=== PATIENT | female | born 1945 | race Caucasian/White ===

== ENCOUNTER 2018-02-03 15:01 | Outpatient (CLI) | payer MEDICARE | END 2018-02-03 15:02 | disposition home or self-care (01) | LOC: BICMAMMO 15:01 | PROVIDERS: ATTEND Obstetrics & Gynecology | DX: Z12.31 Encounter for screening mammogram for malignant neoplasm of breast (principal); Z98.82 Breast implant status | CPT/HCPCS: 77063; 77067 ==

== ENCOUNTER 2018-03-06 21:21 | Emergency (ER) | payer MEDICARE ==
--- NOTE | 2018-03-06 22:30 | RAD ---
RIGHT KNEE: 03/06/18 Four views. HISTORY: Trauma with pain. No evidence of fracture. No evidence of significant joint effusion. IMPRESSION: No acute osseous abnormality identified. POS: [facility]
--- NOTE | 2018-03-06 22:32 | RAD ---
LEFT FOOT: 03/06/18 Three views. HISTORY: Trauma with pain. Tarsals unremarkable. Small enthesophytes from the calcaneus. The metatarsals and phalanges appear i ntact. IMPRESSION: No acute fracture identified. POS: [facility]
[2018-03-06] MEDS ORDERED: Bacitracin Zinc 1 Packet ONE (22:50)
== END 2018-03-06 23:06 | disposition home or self-care (01) ==
LOC: SCSER 21:21
DX: S90.112A Contusion of left great toe without damage to nail, initial encounter (principal); S60.012A Contusion of left thumb without damage to nail, initial encounter; S80.212A Abrasion, left knee, initial encounter; S80.211A Abrasion, right knee, initial encounter; M70.40 Prepatellar bursitis, unspecified knee; E78.5 Hyperlipidemia, unspecified; E11.9 Type 2 diabetes mellitus without complications; I10 Essential (primary) hypertension; Z79.84 Long term (current) use of oral hypoglycemic drugs; Z79.899 Other long term (current) drug therapy; Z85.42 Personal history of malignant neoplasm of other parts of uterus; W01.0XXA Fall on same level from slipping, tripping and stumbling without subsequent striking against object, initial encounter